=== PATIENT | female | born 1975 | race Caucasian/White ===

== ENCOUNTER 2018-04-06 17:55 | Emergency (ER) | payer BC, OTHER ==
[~2018-04-06] VITALS: Ht 167.6 cm; Wt 65.0 kg
[2018-04-06 17:57] VITALS: TEMP 36.6; Ht 167.6 cm; Wt 65.0 kg
[2018-04-06] MEDS ORDERED: LIDOCAINE 1% BUFFERED INJ 20 ML VIAL INFIL ONE (18:15)
--- NOTE | 2018-04-06 18:33 | EMERGENCY ROOM VISIT NOTE ---
ED Visit Note First contact with patient: 17:59 CHIEF COMPLAINT: Right third and fourth finger lacerations HISTORY OF PRESENT ILLNESS: This 42-year-old female patient cut the right third and fourth fingertips on a snow cone machine when she was cleaning it. The bleeding has stopped. Denies weakness or numbness of the finger. Patient is right-hand dominant. The patient's tetanus is up-to-date. REVIEW OF SYSTEMS: 6 system review was performed and was negative unless stated otherwise in history of present illness. PMH: The patient is healthy; there is no significant medical or surgical history. SOCIAL HISTORY: Patient lives with her family. The patient denies any tobacco or alcohol use. PHYSICAL EXAM: Vital Signs: Were reviewed reviewed Nurse's notes. GENERAL: 42- year-old female appears in no acute distress. MENTAL Status: Alert and oriented 3. RIGHT FOURTH FINGER: There is a 1.5 cm U-shaped flap-like laceration on the distal tip of the finger. There is no active bleeding. The wound looks clean. RIGHT THIRD FINGER: There is a 8 mm superficial laceration on the tip of the finger. The wound looks clean. The edges do not gape with traction. No deep structures are visualized. EMERGENCY DEPARTMENT COURSE: The patient was evaluated. The third finger laceration was cleansed with Betadine and copiously irrigated with normal saline. It was dried and Dermabond applied. Wound Repair: Of left fourth finger Complexity: Basic. Verbal consent was obtained after the risks and benefits were explained, including but not limited to bleeding, scarring, infection, pain, and bone/joint /nerve damage. The skin was prepped with betadine and a sterile field set. The wound was anesthetized with 2.8 ml of 1% buffered lidocaine. With direct pressure the bleeding subsided. Copious irrigation was performed using sterile saline. The wound was explored for foreign bodies and none found. Debridement was not performed. The wound edges were approximated using 5-0 Ethilon with 4 simple interrupted sutures. Hemostasis and excellent approximation was achieved. Antibacterial ointment and a sterile dressing applied. Detailed wound care instructions and signs and symptoms of infection reviewed with the patient. No complications and the patient tolerated the procedure well. A cage splint was applied. DIAGNOSIS: 1.5 cm right fourth finger laceration 8 mm right third finger laceration DISCHARGE INSTRUCTIONS & TREATMENT: For the fourth finger laceration. Keep wound clean and dry. No water on the area for 12-24 hrs then no soaking until sutures removed. Do not allow any crusting or dried blood to accumulate on sutures. If this occurs, use a 1:1 solution of hydrogen peroxide/water on a Q- tip to clean the wound. Use an antibiotic ointment for 3-4 days, then let wound dry. Suture removal in 8-10 days. Follow up sooner for any signs of infection (increasing redness, swelling, drainage). Ice and elevate for swelling and pain. Tylenol 650 mg every 6 hrs for pain. Wear the cage splint for protection as needed. For the third finger laceration: Do not apply antibiotic ointment. You may get the wound wet. The skin glue will just fall off in a few days. Current/Historical Medications Miscellaneous Medications None (Patient States No Home Meds) Allergies Coded Allergies: No Known Allergies (Verified Allergy, Unknown, 06/19/05) Vital Signs Date Time Temp Pulse Resp B/P (MAP) Pulse Ox O2 Delivery O2 Flow Rate FiO2 04/06/18 17:57 36.6 84 20 111/56 98 Room Air Medications Administered Medications (Trade) Dose Ordered Sig/Jacqueline Route Start Time Stop Time Status Last Admin Dose Admin Lidocaine HCl (Buffered Lidocaine 1% Inj) 20 ml NOW ONCE INFIL 04/06/18 18:15 04/06/18 18:16 DC 04/06/18 18:09 20 ML Departure Information Referrals Ravinder Dai M.D. (PCP) Patient Instructions [facility]
[2018-04-06] MEDS ORDERED: MULT-1027 PO (18:36)
[2018-04-06 18:46] VITALS: BP 99/60; PULSE 65; O2SAT 100
== END 2018-04-06 18:47 | disposition home or self-care (01) ==
LOC: C.EDB 17:57 → C.EDD 18:47
DX: S61.241A Puncture wound with foreign body of left index finger without damage to nail, initial encounter (principal); S61.212A Laceration without foreign body of right middle finger without damage to nail, initial encounter; W26.8XXA Contact with other sharp object(s), not elsewhere classified, initial encounter